=== PATIENT | male | born 1980 | race African-American/Black ===

== ENCOUNTER 2022-04-19 18:58 | Emergency (ER) | payer OTHER, SELFPAY ==
[2022-04-19 19:27] VITALS: BP 125/75; PULSE 94; RESP 18; TEMP 37.2; O2SAT 97; BMI 20.3
== END 2022-04-19 21:09 | disposition left against medical advice (07) ==
LOC: HO.ED 21:08
PROVIDERS: Emergency Provider Emergency Medicine
DX: M79.604 Pain in right leg (principal); R20.0 Anesthesia of skin
CPT/HCPCS: 99281

== ENCOUNTER 2022-07-31 23:31 | Emergency (ER) | payer OTHER, SELFPAY ==
--- NOTE | ~2022-07-31 | XR_ITS ---
EXAMINATION: XR LUMBOSACRAL SPINE CLINICAL INFORMATION: Right-sided sciatic pain COMPARISON: None TECHNIQUE: Three views of the lumbosacral spine. FINDINGS: 5 nonrib-bearing lumbar-type vertebral bodies with diminutive T12 ribs. No acute visible fracture or dislocation. Very mild multilevel degenerative changes with osteophyte formation and facet arthropathy. Vertebral body height and disc spaces are otherwise maintained. Posterior elements are intact. Paraspinal soft tissues are unremarkable. Sclerotic focus overlying the right iliopectineal line nonspecific though may represent a bone island. Visualized bowel gas is unremarkable. XR/XR lumbar spine 2-3V IMPRESSION: 1. No acute visible fracture or dislocation. 2. Very mild multilevel degenerative changes.
[2022-08-01 00:49] VITALS: BP 90/54; PULSE 89; RESP 16; TEMP 37.2; O2SAT 95; BMI 22.1
[2022-08-01 06:35] VITALS: BP 109/71; PULSE 73; RESP 13; TEMP 36.7; O2SAT 98
--- NOTE | 2022-08-01 07:09 | ED_ITS ---
HPI - General Adult General Chief complaint: Extremity Problem Stated complaint: BACK PAIN INJURY Time Seen by Provider: 08/01/22 07:09 Source: patient Mode of arrival: ambulatory Limitations: no limitations History of Present Illness HPI narrative: Patient states that he injured himself a few weeks ago, is seeing an orthopedist and physical therapy. Was told to come in because he is not getting better. Denies numbness, denies bowel or bladder issues. Patient states that his pain goes down his right leg Onset (ago): week(s) Location: back Radiation: back Severity: moderate Pain Consistency: constant Associated symptoms: denies other symptoms Related Data Previous Rx's Medication Instructions Recorded cyclobenzaprine 10 mg tablet 10 mg PO TID #10 tabs 08/01/22 naproxen 500 mg tablet (Naprosyn) 500 mg PO BID #20 tabs 08/01/22 Allergies Allergy/AdvReac Type Severity Reaction Status Date / Time Iodinated Contrast Media Allergy Unknown HIVES Unverified 07/22/20 19:36 [IV CONTRAST] Review of Systems Constitutional: Constitutional: Reports no additional constitutional complaints Eyes: Eyes: Reports no additional eye complaints ENT: Denies dizziness Cardiovascular: Cardiovascular: Reports no additional cardiovascular complaints Respiratory: Respiratory: Reports as per HPI Gastrointestinal: Gastrointestinal: Reports no additional gastrointestinal complaints Musculoskeletal: Musculoskeletal: Reports no additional musculoskeletal complaints Integumentary/Breasts: Skin/Breast: Denies rash Neurologic: Reports system reviewed and no additional complaints, except as documented, Denies dizziness and Denies Sensory deficit (Neuro) Psychiatric: Psychiatric: Denies anxiety [facility] Social History Social History Alcohol intake: current Alcohol intake frequency: holidays/special occasions only Patient Tobacco Use Status: Current everyday Tobacco user Smoked in Last 30 Days: Yes Substance Use Type: Marijuana Substance Use Frequency: Occasionally Last Used Substance: Days (ago) Any prior treatment program specific to substance use: No Advance Directives: No Physical Exam ED Vital Signs: Vital Signs - 24 hr 08/01/22 00:49 08/01/22 06:35 Temperature 98.9 F 98.0 F Pulse Rate 89 73 Respiratory Rate 16 13 Blood Pressure 90/54 L 109/71 Pulse Oximetry 95 98 Oxygen Delivery Method Room Air Room Air BMI result Body Mass Index 22.1 Const Other: thin male in back pain Nutritional Appearance: average body habitus Orientation/consciousness: oriented to person and patient oriented x3 Limitations: no limitations HENMT Head: Yes normal to inspection Ears: external ears normal General nose exam: Normal external nose present Mouth: Normal oral and palatal mucosa present and oropharynx normal Throat: Yes posterior oropharynx normal Eyes General: appearance normal, both eyes and all related structures Neck Neck: Yes normal visual inspection Chest Chest palpation & inspection: normal inspection of the chest Resp Auscultation: clear to auscultation bilaterally Cardio Jugular venous distension: no JVD Rate: regular rate Rhythm: regular rhythm Heart sounds: S1 normal heart sound present and S2 normal heart sound present GI Inspection: Yes normal to inspection Palpation (GI): Soft to palpation, nontender and No hepatosplenomegaly present Auscultation: normal bowel sounds Back/Spine/Pelvis Other: right SI joint pain and right sciatica pain. Skin General skin exam: no rashes or lesions noted Neuro General: oriented to person and patient oriented x3 Cranial nerves: Yes CN's II-XII intact bilaterally Motor exam (neuro): 5/5 motor strength present throughout Sensory Exam: No Sensory deficit (Neuro) Extrem General: Yes normal to inspection Psych Appearance: grossly normal Course Reevaluation(s) Reevaluation #1: patient with mild djd on xray will dc on NSAIDs and flexeril, neuro intact no need for emergency MrI Time: 10:12 Medical Decision Making Imaging Data lumbar xray: Radiologist's impression: FINDINGS: 5 nonrib-bearing lumbar-type vertebral bodies with diminutive T12 ribs. No acute visible fracture or dislocation. Very mild multilevel degenerative changes with osteophyte formation and facet arthropathy. Vertebral body height and disc spaces are otherwise maintained. Posterior elements are intact. Paraspinal soft tissues are unremarkable. Sclerotic focus overlying the right iliopectineal line nonspecific though may represent a bone island. Visualized bowel gas is unremarkable. XR/XR lumbar spine 2-3V IMPRESSION: 1.? No acute visible fracture or dislocation. 2.? Very mild multilevel degenerative changes. Discharge Plan Discharge Clinical Impression: Lumbar back pain Patient Disposition: Home, Self-Care Instructions: Acute Low Back Pain (ED) Prescriptions: New cyclobenzaprine 10 mg tablet 10 mg PO TID Qty: 10 0RF naproxen [Naprosyn] 500 mg tablet 500 mg PO BID Qty: 20 0RF Referrals: Physician,None [Primary Care Provider] - 5 days (follow up with your orthopedist)
[2022-08-01] MEDS: Cyclobenzaprine HCl 10 MG TABLET PO (07:30)
[2022-08-01] MEDS: Ketorolac Tromethamine 60 MG/2 ML VIAL IM (07:31)
== END 2022-08-01 10:28 | disposition home or self-care (01) ==
PROVIDERS: Emergency Provider Emergency Medicine
DX: M54.50 Low back pain, unspecified (principal); Z79.899 Other long term (current) drug therapy
CPT/HCPCS: 72100; 96372; 99284; J1885

== ENCOUNTER 2024-03-19 15:07 | Emergency (ER) | payer OTHER, SELFPAY ==
--- NOTE | ~2024-03-19 | XR_ITS ---
EXAMINATION: XR LUMBOSACRAL SPINE CLINICAL INFORMATION: Right-sided pain after fall COMPARISON: Lumbar spine 08/01/2022 MR lumbar spine 08/31/2022 TECHNIQUE: Three views of the lumbosacral spine. FINDINGS: There are mild spondylitic endplate changes seen at the superior endplates of L1 and L3 and L4. Vertebral body heights and disc spaces are well maintained. No acute fractures or subluxations are seen. There is a minimal scoliosis convex to the right unchanged from prior. XR/XR lumbar spine 2-3V IMPRESSION: Mild degenerative changes. No acute finding.
--- NOTE | 2024-03-19 16:38 | ED.GENADULT ---
HPI - General Adult General Chief complaint: Fall Stated complaint: herminia rodriguez, fell two days ago, pain Time Seen by Provider: 03/19/24 22:57 Source: patient, RN notes reviewed and old records reviewed Mode of arrival: ambulatory Limitations: no limitations History of Present Illness HPI narrative: 43-year-old male past medical history significant for chronic back pain presents for evaluation of right lower back pain Patient reports trying to get in the shower 2 days ago when he slipped and fell backwards Healing on his back. He did not hit his head or lose consciousness. He has not on any blood thinners He reports 8/10 back pain in the right lower back that radiates down his leg He occasionally ambulates with a walker at baseline due to pain He reports a previous back surgery but is unsure exactly what was performed Denies any numbness, tingling, bladder or bowel incontinence Related Data Previous Rx's ?Medication ?Instructions ?Recorded cyclobenzaprine 10 mg tablet 10 mg PO TID #10 tabs 08/01/22 naproxen 500 mg tablet (Naprosyn) 500 mg PO BID #20 tabs 08/01/22 cyclobenzaprine 10 mg tablet 10 mg PO TID PRN muscle spasm #15 03/19/24 tabs dexamethasone 4 mg tablet 4 mg PO BID #6 tabs 03/19/24 ibuprofen 600 mg tablet 600 mg PO Q6H PRN pain #20 tabs 03/19/24 Allergies Allergy/AdvReac Type Severity Reaction Status Date / Time Iodinated Contrast Media Allergy Unknown HIVES Verified 03/19/24 16:41 [IV CONTRAST] Review of Systems Constitutional: Constitutional: Denies body ache(s), Denies chills, Denies fever(s) and Denies headache(s) Eyes: Eyes: Denies blurry vision ENT: Denies headache(s) and Denies sore throat Cardiovascular: Cardiovascular: Denies chest pain and Denies dyspnea Respiratory: Respiratory: Denies cough and Denies dyspnea Gastrointestinal: Gastrointestinal: Denies abdominal pain, Denies nausea and Denies vomiting Musculoskeletal: Musculoskeletal: Reports back pain Neurologic: Denies headache(s) [facility] Social History Social History Alcohol intake: current Alcohol intake frequency: holidays/special occasions only Patient Tobacco Use Status: Current everyday Tobacco user Substance Use Type: Marijuana Advance Directives: No Advance Directives Information Provided: No Physical Exam ED Vital Signs: Vital Signs - 24 hr 03/19/24 16:39 03/19/24 21:29 03/19/24 23:47 Temperature 98.7 F 98.3 F 98.3 F Pulse Rate 74 90 90 Respiratory Rate 16 16 16 Blood Pressure 98/63 104/78 104/78 Pulse Oximetry 98 97 97 Oxygen Delivery Method Room Air Room Air Room Air BMI result Body Mass Index 20.4 Const General: healthy appearing, comfortable, no acute distress, alert and awake Nutritional Appearance: well nourished Orientation/consciousness: patient oriented x3 HENMT Head: Yes normocephalic and Yes atraumatic Eyes Eyelids: Yes eyelids normal Conjunctivae: conjunctivae normal Sclerae: sclerae normal Corneas: corneas normal Pupils: Equal, round and reactive pupils present EOM: EOMs intact bilaterally Neck Neck: Yes full ROM Resp Effort & Inspection: normal respiratory effort, able to speak in complete sentences and not labored GI Inspection: No distended Palpation (GI): Soft to palpation, not firm, nontender, no guarding and not rigid Back/Spine/Pelvis Other: Tenderness to the right lumbar paraspinous region without vertebral tenderness. No step-off deformities. Negative straight leg raise bilaterally. Skin General skin exam: elasticity normal Neuro General: patient oriented x3 Cranial nerves: Yes Equal, round and reactive pupils present and Yes Bilaterally intact EOM present Cognition (Neuro): normal cognition Gait exam (Neuro): Normal gait present Motor exam (neuro): 5/5 motor strength present throughout Extrem Other: Moving all extremities well without any obvious deformities Course Course Course Narrative: This is a rapid medical exam performed by Loan Green NP: Additional HPI, ROS, PE not included below will be deferred to primary provider. Patient is a 43-year-old male presenting to the ED with complaint of low back pain after fall 2 days ago. States he lost his balance falling onto the floor. Denies head strike or loss of consciousness. Right lower back pain radiating down right leg, tingling but denies numbness. Marcellus a pop getting out of bed earlier. Denies difficulty urinating. Plan: xray Medications Administered Discontinued Medications Generic Name Dose Route Start Last Admin Trade Name Freq PRN Reason Stop Dose Admin Cyclobenzaprine HCl 10 mg 03/19/24 23:19 03/19/24 23:33 Cyclobenzaprine Hcl 10 Mg Tablet PO 03/19/24 23:20 10 mg ONCE ONE Administration Dexamethasone 4 mg 03/19/24 23:19 03/19/24 23:33 Dexamethasone 4 Mg Tablet PO 03/19/24 23:20 4 mg ONCE ONE Administration Medical Decision Making Medical Decision Making MDM Narrative: 43-year-old male presents for evaluation acute on chronic back pain after falling. His x-ray shows mild degenerative changes but no fractures. His physical exam is reassuring, he has no concerning history for cauda equina syndrome, strength is good to the bilateral lower extremities. Plan for symptomatic treatment for sciatica Differential Diagnosis Differential Diagnoses: The differential diagnosis associated with the presentation includes Sciatica Muscle strain Contusion Radiculopathy Back pain Independent Interpretation I performed an independent interpretation of an: Plain X-Ray Interpretation: No obvious lumbar compression fracture Radiology Impression Discussion of test interpretation with radiology: I have reviewed the radiologist's reading. Radiologist Impression: XR/XR lumbar spine 2-3V IMPRESSION: Mild degenerative changes. No acute finding. Discharge Plan Discharge Clinical Impression: Sciatica Patient Disposition: Home, Self-Care Instructions: Sciatica (ED) Additional Instructions: Your x-ray did not show any new fractures. Take dexamethasone twice daily for 3 days. Use ibuprofen for pain. Use cyclobenzaprine as needed for muscle spasms This may make you sleepy, did not drink alcohol or drive after taking it Follow-up with your primary doctor Prescriptions: New dexamethasone 4 mg tablet 4 mg PO BID Qty: 6 0RF cyclobenzaprine 10 mg tablet 10 mg PO TID PRN (Reason: muscle spasm) Qty: 15 0RF ibuprofen 600 mg tablet 600 mg PO Q6H PRN (Reason: pain) Qty: 20 0RF No Action cyclobenzaprine 10 mg tablet 10 mg PO TID Qty: 10 0RF naproxen [Naprosyn] 500 mg tablet 500 mg PO BID Qty: 20 0RF Interventions: ED Discharge Assessment Last Done: 03/19/24 23:47 Discharge Date/Time: 03/19/24 23:48 Print Language: Bangladeshi
[2024-03-19 16:39] VITALS: BP 98/63; PULSE 74; RESP 16; TEMP 37.1; O2SAT 98; BMI 20.4
[2024-03-19 21:29] VITALS: BP 104/78; PULSE 90; RESP 16; TEMP 36.8; O2SAT 97
[2024-03-19] MEDS: dexAMETHasone 4 MG TABLET PO (23:33)
[2024-03-19] MEDS: Cyclobenzaprine HCl 10 MG TABLET PO (23:33)
[2024-03-19 23:47] VITALS: BP 104/78; PULSE 90; RESP 16; TEMP 36.8; O2SAT 97
== END 2024-03-19 23:48 | disposition home or self-care (01) ==
PROVIDERS: Emergency Provider Internal Medicine
DX: M54.30 Sciatica, unspecified side (principal); M54.50 Low back pain, unspecified
CPT/HCPCS: 72100; 99283; J8540

== ENCOUNTER 2024-04-20 11:39 | Emergency (ER) | payer OTHER, SELFPAY ==
--- NOTE | ~2024-04-20 | XR_ITS ---
Radiograph lumbar spine and sacrum/coccyx CLINICAL HISTORY: Pain, injury. COMPARISON: Radiograph lumbar spine 03/19/2024. TECHNIQUE: 2 views of the lumbar spine and 2 views of the sacrum/coccyx. FINDINGS: Lumbar spine: Stable mild right apical curvature of the lumbar spine. No evidence of acute compression deformity or subluxation. Stable minimal degenerative changes with trace intervertebral disc height loss and minimal facet arthropathy. No significant paraspinal soft tissue abnormality. Sacrum/coccyx: No acute fractures or malalignment. Symmetric SI joints. Pelvic phleboliths are seen. No significant soft tissue abnormality. XR/XR sacrum coccyx min 2V IMPRESSION: 1. No acute fractures or malalignment. 2. Stable minimal lumbar spondylosis. 3. Symmetric SI joints.
--- NOTE | ~2024-04-20 | XR_ITS ---
Radiograph lumbar spine and sacrum/coccyx CLINICAL HISTORY: Pain, injury. COMPARISON: Radiograph lumbar spine 03/19/2024. TECHNIQUE: 2 views of the lumbar spine and 2 views of the sacrum/coccyx. FINDINGS: Lumbar spine: Stable mild right apical curvature of the lumbar spine. No evidence of acute compression deformity or subluxation. Stable minimal degenerative changes with trace intervertebral disc height loss and minimal facet arthropathy. No significant paraspinal soft tissue abnormality. Sacrum/coccyx: No acute fractures or malalignment. Symmetric SI joints. Pelvic phleboliths are seen. No significant soft tissue abnormality. XR/XR lumbar spine 2-3V IMPRESSION: 1. No acute fractures or malalignment. 2. Stable minimal lumbar spondylosis. 3. Symmetric SI joints.
--- NOTE | 2024-04-20 11:42 | ED_ITS ---
HPI - General Adult General Chief complaint: Back Pain/Injury Stated complaint: LOW BACK PAIN INTO R LEG,SLIP/FALL 2 WEEKS AGO Time Seen by Provider: 04/20/24 11:42 Source: patient and EMS Mode of arrival: EMS Limitations: no limitations History of Present Illness ED Provider: Charity Graham PA-C HPI narrative: Patient is a 43 year old assigned male at with a history of low back yoli deborah in October 2023, presenting to the emergency department today with low back pain. Patient states that 2.5 weeks ago he had a slip and fall in the shower that has been causing right lower back pain that radiates down his right leg. Patient denies any head strike, loss of consciousness, dizziness, lightheadedness, abdominal pain, nausea, vomiting, fever, chills, blurry vision, double vision, loss of vision, chest pain, difficulty breathing, shortness of breath, night sweats, pain with urination, increased urinary frequency, increased urinary urgency, blood in [his/her/their] urine or stool, syncope or a near syncopal episode, recent trauma or falls, bowel incontinence, bladder incontinence, or any other complaints at this time. Patient states that he has used cocaine and alcohol today prior to arrival. Onset (ago): week(s) (2.5) Location: back Radiation: extremity and distal Severity: mild Severity scale (1-10): 3 Quality: aching Pain Consistency: constant Relieving factors: none Exacerbating factors: movement Associated symptoms: denies other symptoms Treatments prior to arrival: none Related Data Previous Rx's ?Medication ?Instructions ?Recorded cyclobenzaprine 10 mg tablet 10 mg PO TID #10 tabs 08/01/22 naproxen 500 mg tablet (Naprosyn) 500 mg PO BID #20 tabs 08/01/22 cyclobenzaprine 10 mg tablet 10 mg PO TID PRN muscle spasm #15 03/19/24 tabs dexamethasone 4 mg tablet 4 mg PO BID #6 tabs 03/19/24 ibuprofen 600 mg tablet 600 mg PO Q6H PRN pain #20 tabs 03/19/24 cyclobenzaprine 10 mg tablet 10 mg PO TID PRN muscle spasm 7 04/20/24 days #21 tabs Allergies Allergy/AdvReac Type Severity Reaction Status Date / Time Iodinated Contrast Media Allergy Unknown HIVES Verified 04/20/24 12:11 [IV CONTRAST] Review of Systems Constitutional: Constitutional: Reports no additional constitutional complaints, Denies chills, Denies fever(s) and Denies night sweats Eyes: Eyes: Reports no additional eye complaints, Denies blurry vision, Denies change in vision, Denies diplopia, Denies eye discharge, Denies loss of vision and Denies eye pain ENT: Denies dizziness Cardiovascular: Cardiovascular: Reports no additional cardiovascular complaints, Denies chest pain, Denies lightheadedness, Denies Loss of Consciousness and Denies dyspnea Respiratory: Respiratory: Reports no additional respiratory complaints and Denies dyspnea Gastrointestinal: Gastrointestinal: Reports no additional gastrointestinal complaints, Denies abdominal pain, Denies melena, Denies hematochezia, Denies change in bowel habits and Denies change in stool character Genitourinary: Genitourinary: Reports no additional male genitourinary complaints, Denies hematuria, Denies oliguria, Denies difficulty urinating, Denies dysuria, Denies urinary frequency, Denies urinary hesitancy, Denies urinary incontinence and Denies urinary urgency Musculoskeletal: Musculoskeletal: Reports no additional musculoskeletal complaints, Reports back pain, Denies numbness and Denies tingling Neurologic: Denies dizziness, Denies loss of vision, Denies numbness and Denies tingling Psychiatric: Psychiatric: Reports no additional psychiatric complaints Endocrine: Endocrine: Reports no additional endocrine complaints Hematologic/Lymphatic: Hematologic/Lymphatic: Reports no additional hematologic/lymphatic complaints Allergic/Immunologic: Allergic/Immunologic: Reports no additional allergic/immunologic complaints [facility] Past Medical History Attestation statement: The following information was validated with the patient. Source: old records reviewed and nursing notes reviewed Social History Social History Alcohol intake: current Alcohol intake frequency: holidays/special occasions on ly Patient Tobacco Use Status: Current everyday Tobacco user Substance Use Type: Marijuana Advance Directives: No Advance Directives Information Provided: Yes Physical Exam ED Vital Signs: Vital Signs - 24 hr 04/20/24 11:46 04/20/24 13:29 Temperature 98.7 F 98.7 F Pulse Rate 104 H 104 H Respiratory Rate 18 18 Blood Pressure 118/80 118/80 Pulse Oximetry 97 97 Oxygen Delivery Method Room Air Room Air BMI result Body Mass Index 19.3 Const General: cooperative, no acute distress, alert and awake Nutritional Appearance: well nourished Orientation/consciousness: patient oriented x3 Limitations: no limitations HENMT Head: Yes normal to inspection and Yes atraumatic Ears: hearing grossly normal bilaterally and external ears normal General nose exam: Normal external nose present, no nasal discharge noted and no epistaxis Face and sinus: Yes normal facial exam, No abrasion and No laceration Mouth: Normal oral and palatal mucosa present, no drooling and no muffled voice Eyes General: appearance normal, both eyes and all related structures Periorbital: periorbital findings normal Eyelids: Yes eyelids normal Conjunctivae: conjunctivae normal Pupils: Equal, round and reactive pupils present EOM: EOMs intact bilaterally Neck Neck: Yes normal visual inspection, Yes full ROM and Yes no lymphadenopathy Chest Chest palpation & inspection: normal inspection of the chest Resp Effort & Inspection: normal respiratory effort and able to speak in complete sentences GI Inspection: Yes normal to inspection General: Yes no CVA tenderness Back/Spine/Pelvis Back: no CVA tenderness Cervical Spine: normal cervical lordosis and cervical ROM normal Thoracic/Lumbar Spine: thoracic and lumbar spine normal to inspection Neuro General: patient oriented x3 and moves all extremities Cranial nerves: Yes Equal, round and reactive pupils present Cognition (Neuro): normal cognition Motor exam (neuro): 5/5 motor strength present throughout Sensory Exam: Normal double simultaneous stimulation for sensation Coordination: [id number] test normal Extrem General: Yes normal to inspection, Yes full ROM and Yes capillary refill normal Psych Appearance: grossly normal Mental Status: mental status grossly normal Affect: normal affect Attitude: cooperative Thought process: Normal thought process present Thought content: Normal thought content present Insight: Good insight present (Psych) Medications Administered Discontinued Medications Generic Name Dose Route Start Last Admin Trade Name Freq PRN Reason Stop Dose Admin Cyclobenzaprine HCl 5 mg 04/20/24 11:42 04/20/24 11:55 Cyclobenzaprine Hcl 5 Mg Tablet PO 04/20/24 11:43 5 mg ONCE ONE Administration Ketorolac Tromethamine 15 mg 04/20/24 11:42 04/20/24 11:55 Ketorolac Tromethamine 15 Mg/Ml Vial IM 04/20/24 11:43 15 mg ONCE ONE Administration Medical Decision Making Medical Decision Making MDM Narrative: Patient is a 43 year old assigned male at with a history of low back surgery in October 2023 presenting to the emergency department today with low back pain. Patient's physical exam was unremarkable. Patient's sacrum and coccyx x-ray showed no acute process. I explained my physical exam findings as well as all test results to the patient. I answered all questions asked by the patient. Patient received IM toradol and PO Flxeril which on re-evaluation he stated helped his symptoms significantly. I stressed the importance of the patient johnie ing his medication as prescribed. I stressed the importance of the patient following up with his primary care provider and his teaching specialists. I stressed the importance of the patient returning to the emergency department immediately if his symptoms were to worsen or if he were to develop any dizziness, shortness of breath, difficulty breathing, chest pain, blurry vision, loss of vision, nausea, vomiting, abdominal pain, fever, chills, back pain, or any other complaints. Patient verbalized agreement and understanding with this treatment plan and discharge. Differential Diagnosis Differential Diagnoses: The differential diagnosis associated with the presentation includes Low back pain Muscle spasm Admission/Observation Consideration of admission/observation: Escalation of care including admission/observation considered Patient would have been admitted to the hospital had his work up had any findings where hospital admission was appropriate and his clinical presentation warranted hospital admission. Independent Interpretation I performed an independent interpretation of an: Plain X-Ray Interpretation: My interpretation is in agreement with the radiologist's impression of this imaging study. Radiograph lumbar spine and sacrum/coccyx CLINICAL HISTORY: Pain, injury. COMPARISON: Radiograph lumbar spine 03/19/2024. TECHNIQUE: 2 views of the lumbar spine and 2 views of the sacrum/coccyx. FINDINGS: Lumbar spine: Stable mild right apical curvature of the lumbar spine. No evidence of acute compression deformity or subluxation. Stable minimal degenerative changes with trace intervertebral disc height loss and minimal facet arthropathy. No significant paraspinal soft tissue abnormality. Sacrum/coccyx: No acute fractures or malalignment. Symmetric SI joints. Pelvic phleboliths are seen. No significant soft tissue abnormality. XR/XR sacrum coccyx min 2V IMPRESSION: 1. No acute fractures or malalignment. 2. Stable minimal lumbar spondylosis. 3. Symmetric SI joints. Dictated By: Lisa Kinsey Signed By: Electronically signed by Lisa Kinsey 04/20/24 1242 Radiology Impression Discussion of test interpretation with radiology: I have reviewed the radiologist's reading. Independent Historian Clinical information obtained from an independent historian. History obtained from or confirmed by: EMS (EMS provided additional history and confirmed the history provided by the patient.) Prescription Management I considered prescription management with: Pain Medication (patient prescribed pain medication) Critical Care Time Critical Care Time Critical Care Time: Yes Total Critical Care Time: 31 Attestation: I spent 31 minutes of Critical Care Time with this patient. This does not include time spent on separately reported billable procedures. Discharge Plan Discharge Clinical Impression: Muscle spasm Patient Disposition: Home, Self-Care Instructions: Muscle Spasm (ED) Additional Instructions: Follow up with your primary care provider and a spine surgeron. Return to the emergency department immediately if your symptoms worsen or if you develop any dizziness, shortness of breath, difficulty breathing, chest pain, blurry vision, loss of vision, nausea, vomiting, abdominal pain, fever, chills, back pain, or any other complaints. Prescriptions: New cyclobenzaprine 10 mg tablet 10 mg PO TID PRN (Reason: muscle spasm) 7 Days Qty: 21 0RF No Action cyclobenzaprine 10 mg tablet 10 mg PO TID Qty: 10 0RF naproxen [Naprosyn] 500 mg tablet 500 mg PO BID Qty: 20 0RF dexamethasone 4 mg tablet 4 mg PO BID Qty: 6 0RF cyclobenzaprine 10 mg tablet 10 mg PO TID PRN (Reason: muscle spasm) Qty: 15 0RF ibuprofen 600 mg tablet 600 mg PO Q6H PRN (Reason: pain) Qty: 20 0RF Referrals: [facility] Family Medicine [Provider Group] (Call to establish and follow up with a primary care provider. If you already have a primary care provider, please fo llow up with them.) [facility] [Provider Group] [facility] [Provider Group] Stand Alone Forms: Work/School Release Interventions: ED Discharge Assessment Last Done: 04/20/24 13:29 Discharge Date/Time: 04/20/24 13:30 Print Language: Swazi
[2024-04-20 11:46] VITALS: BP 100/60; BP 118/80; PULSE 104; PULSE 119; RESP 18; TEMP 37.1; O2SAT 96; O2SAT 97; BMI 19.3
[2024-04-20] MEDS: Cyclobenzaprine HCl 5 MG TABLET PO (11:55)
[2024-04-20] MEDS: Ketorolac Tromethamine 15 MG/ML VIAL IM (11:55)
[2024-04-20 13:29] VITALS: BP 118/80; PULSE 104; RESP 18; TEMP 37.1; O2SAT 97
== END 2024-04-20 13:30 | disposition home or self-care (01) ==
PROVIDERS: Emergency Provider Emergency Medicine Emergency Medical Services
DX: M62.830 Muscle spasm of back (principal)
CPT/HCPCS: 72100; 72220; 96372; 99283; 99284; J1885

== ENCOUNTER 2024-04-28 01:39 | Emergency (ER) | payer OTHER, SELFPAY ==
--- NOTE | ~2024-04-28 | US_ITS ---
EXAMINATION: US VENOUS ULTRASOUND WITH DOPPLER LOWER EXTREMITY, BILATERAL CLINICAL INFORMATION: Bilateral lower extremity edema COMPARISON: Right lower extremity DVT study 10/22/2018 TECHNIQUE: Ultrasound of the deep veins is performed from the hip to the calf with compression sonography and color and pulse Doppler assessment. Spectral analysis with color-flow imaging is performed. FINDINGS: RIGHT: There is normal venous compression and respiratory variation and augmented flow. The visualized common femoral vein, superficial femoral vein, profunda femoral vein, popliteal vein, and the trifurcation region shows no evidence of deep venous thrombosis. The posterior tibial veins appear normal. Peroneal veins were not visualized. There is no significant popliteal fossa cyst. LEFT: There is normal venous compression and respiratory variation and augmented flow. The visualized common femoral vein, superficial femoral vein, profunda femoral vein, popliteal vein, and the trifurcation region shows no evidence of deep venous thrombosis. Posterior tibial veins and peroneal veins appear normal. There is no significant popliteal fossa cyst. If the patient's symptoms persist, followup ultrasound in 5 days 7 days might be of value to exclude proximal propagation from a non-visualized calf vein. US/US venous duplex LE BI IMPRESSION: No DVT demonstrated in either lower extremity. Peroneal veins on the right were not seen.
[2024-04-28 01:46] VITALS: BP 115/73; PULSE 126; RESP 20; TEMP 36.9; O2SAT 99; BMI 19.7
--- NOTE | 2024-04-28 01:59 | MHC.EDTECH ---
Patient brought to triage area,labs drawn and sent to lab
[2024-04-28 02:04] LABS: Mean Corpuscular HGB Conc 34.2 g/dl (31.0-36.0); Mean Corpuscular Volume 93.6 fL (80.0-98.0); Platelet Count 299 X10*3/uL (160-400); Red Blood Count 4.06 X10*6/uL (4.60-5.80); Red Cell Distribution Width 16.1 % (11.0-16.0); WBC ABN SCTR FOR CBC 1
[2024-04-28 02:06] LABS: White Blood Count 10.8 X10*3/uL (4.8-10.8)
[2024-04-28 02:21] LABS: Alanine Aminotransferase 39 U/L (0-40); Albumin Level 4.6 g/dL (3.5-5.0); Alkaline Phosphatase 71 U/L (39-117); Anion Gap 18 (12-20); Aspartate Amino Transferase 40 U/L (5-37); Bilirubin Total 0.8 mg/dL (0.0-1.0); Blood Urea Nitrogen 15 mg/dL (9-16); Calcium 9.5 mg/dL (8.4-10.2); Carbon Dioxide 23 mmol/L (22-29); Chloride 102 mmol/L (96-108); Creatinine Clr Calc Pharmacy 104.9; Estimated Glomerular Filt Rate > 60; Glucose Random 139 mg/dL (60-115); Potassium 4.6 mmol/L (3.3-5.1); Sodium 138 mmol/L (135-145); Total Protein 7.4 g/dL (6.5-8.0)
[2024-04-28 02:38] LABS: Band Neutrophils Percent 1 % (3-5); Lymphocytes Absolute Manual 1.1 X10*3/uL (1.2-4.9); Lymphocytes Percent Manual 10 % (20-40); Monocytes Absolute Manual 0.8 X10*3/uL (0.1-1.2); Monocytes Percent Manual 7 % (2-11); Neutrophils Percent Manual 82 % (45-73)
[2024-04-28 02:39] LABS: Platelet Estimate NORMAL (NORMAL); Platelet Morphology Comment NORMAL; RBC Morphology NORMAL
[2024-04-28 02:48] LABS: B Type Natriuretic Peptide < 10 pg/mL (<100)
[2024-04-28 04:13] VITALS: BP 122/65; PULSE 100; RESP 14; TEMP 36.7; O2SAT 98
--- NOTE | 2024-04-28 05:47 | ED_ITS ---
HPI - General Adult General Chief complaint: Extremity Problem Stated complaint: pain and swelling in both feet Time Seen by Provider: 04/28/24 05:47 History of Present Illness ED Provider: Venessa JEFFERS narrative: The patient is a 43-year-old male who had back surgery in September of 2023 following a work related injury 2 years ago. He has had a lot of ongoing back pain despite the surgery and a few weeks ago he apparently fell in a bathtub and has had worsening pain ever since then. He has been seen here before for the injury and had negative x-rays. Apparently his pain is such that it does not allow him to lie down and he spends most of his time on his feet, sometimes not going to sleep because it is too painful to be in any other position than standing. Over the last 2-3 days he has developed bilateral lower extremity edema with some associated redness of the lower legs. He has had no fever, sweats, chills. He has had no bowel or bladder control problems. He has been able to walk but is still not able to lie down. He has had no shortness of breath or chest pain. Related Data Previous Rx's ?Medication ?Instructions ?Recorded cyclobenzaprine 10 mg tablet 10 mg PO TID #10 tabs 08/01/22 naproxen 500 mg tablet (Naprosyn) 500 mg PO BID #20 tabs 08/01/22 cyclobenzaprine 10 mg tablet 10 mg PO TID PRN muscle spasm #15 03/19/24 tabs dexamethasone 4 mg tablet 4 mg PO BID #6 tabs 03/19/24 ibuprofen 600 mg tablet 600 mg PO Q6H PRN pain #20 tabs 03/19/24 cyclobenzaprine 10 mg tablet 10 mg PO TID PRN muscle spasm 7 04/20/24 days #21 tabs cyclobenzaprine 10 mg tablet 10 mg PO TID PRN muscle spasm #20 04/28/24 tabs morphine 15 mg immediate release 15 mg PO Q6H PRN pain #18 tabs 04/28/24 tablet Allergies Allergy/AdvReac Type Severity Reaction Status Date / Time Iodinated Contrast Media Allergy Unknown HIVES Verified 04/28/24 01:51 [IV CONTRAST] Review of Systems 2 Review of Systems: Yes all other systems are reviewed and are negative [facility] Social History Social History (Reviewed 04/20/24 @ 12:25 by SENAIT Crawford Alcohol intake: current Alcohol intake frequency: 3 or more drinks per day Alcohol type: beer Patient Tobacco Use Status: Current everyday Tobacco user Smoked in Last 30 Days: Yes Use of substances other than those prescribed or required for medical reasons: Yes Substance Use Type: Marijuana Substance Use Frequency: Daily Advance Directives: No Advance Directives Information Provided: No Physical Exam ED Vital Signs: Vital Signs - 24 hr 04/28/24 01:46 04/28/24 04:13 04/28/24 06:30 Temperature 98.5 F 98.0 F 97.5 F Pulse Rate 126 H 100 91 Respiratory Rate 20 14 12 Blood Pressure 115/73 122/65 96/61 Pulse Oximetry 99 98 99 Oxygen Delivery Method Room Air Room Air Room Air 04/28/24 07:23 04/28/24 08:10 04/28/24 09:03 Temperature 98.9 F 98.9 F Pulse Rate 90 82 82 Respiratory Rate 14 14 14 Blood Pressure 109/70 110/78 110/78 Pulse Oximetry 100 100 100 Oxygen Delivery Method Room Air Room Air Room Air BMI result Body Mass Index 19.7 Const Other: The patient is a thin, chronically ill-appearing man who was standing and leaning on his cane. He did not appear acutely toxic but he seemed anxious. HENMT Other: Face is symmetrical. Mucous membranes moist. Eyes Other: Pupils are round equal, conjunctivae clear Neck Other: Moving his neck easily, no neck swelling Resp Effort & Inspection: normal respiratory effort Auscultation: clear to auscultation bilaterally Cardio Rate: regular rate Rhythm: regular rhythm Heart sounds: S1 normal heart sound present and S2 normal heart sound present Skin Other: The patient has a edema of the lower legs below the knee and of the feet. There is some erythema to both lower legs. Neuro Other: The patient is awake and alert. Speech is clear. Face is symmetrical. He seems to have intact strength in his extremities. Extrem Other: 2+ pitting edema of the lower legs with associated erythema. No particular tenderness. No asymmetry. Medications Administered Discontinued Medications Generic Name Dose Route Start Last Admin Trade Name Freq PRN Reason Stop Dose Admin Cyclobenzaprine HCl 10 mg 04/28/24 06:09 04/28/24 06:30 Cyclobenzaprine Hcl 10 Mg Tablet PO 04/28/24 06:10 10 mg ONCE ONE Administration Morphine Sulfate 30 mg 04/28/24 06:09 04/28/24 06:31 Morphine Sulfate Immed Release 15 Mg Tablet PO 04/28/24 06:10 30 mg ONCE ONE Administration Medical Decision Making Medical Decision Making [facility] Narrative: The patient is a 43-year-old male who has had problems with back pain for some time. He had surgery for his back 8 months ago. In mid March he fell in his shower and it exacerbated his back pain. He now presents with bilateral lower extremity edema which seems most likely related to the fact that he spends almost all of his time on his feet and rarely gets off his feet. I think he has dependent edema with dependent rubor. I do not think he has cellulitis. His labs are unremarkable. An ultrasound of his legs shows no clots. The patient is pain syndrome is complicated by the fact that he has not have a PCP. He is here with his sister with whom he is living. His sister is trying to get him connected with a primary care doctor but she is having difficulty finding a primary care doctor accepting new patients. With regard to the patient's presenting complaint of the bilateral lower extremity edema I think this is a consequence of him spending so much time on his feet. At this point the best I feel I can do is to provide some pain medications for a few days to at least give him some relief of pain and allow some time for him to lie down and get the swelling to go down. I have written a prescription for morphine and for cyclobenzaprine. He was discharged with his sister. Lab Data 04/28/24 01:58 04/28/24 01:58 Labs: Lab Results 04/28/24 Range/Units 01:58 WBC 10.8 (4.8-10.8) X10*3/uL RBC 4.06 L (4.60-5.80) X10*6/uL Hgb 13.0 L (14.0-18.0) g/dl Hct 38.0 L (42.0-52.0) % MCV 93.6 (80.0-98.0) fL MCH 32.0 (27.0-33.0) pg MCHC 34.2 (31.0-36.0) g/dl RDW 16.1 H (11.0-16.0) % Plt Count 299 (160-400) X10*3/uL MPV 10.0 (9.4-12.4) fL Immature Gran % (Auto) Cancelled Neut % (Auto) Cancelled Lymph % (Auto) Cancelled [place] % (Auto) Cancelled Eos % (Auto) Cancelled Baso % (Auto) Cancelled Lymph # (Auto) Cancelled [place] # (Auto) Cancelled Eos # (Auto) Cancelled Baso # (Auto) Cancelled Abs Immat Gran (auto) Cancelled Absolute Neuts (auto) Cancelled Absolute Nucleated RBC 0.000 (0.0-0.012) X10*3/uL Nucleated RBC % (auto) 0.0 (0.0-0.2) /100WBC Neutrophils % (Manual) 82 H (45-73) % Band Neutrophils % 1 L (3-5) % Lymphocytes % (Manual) 10 L (20-40) % Monocytes % (Manual) 7 (2-11) % Abs Neuts (Manual) 9.0 H (2.0-8.3) X10*3/uL Lymphocytes # (Manual) 1.1 L (1.2-4.9) X10*3/uL Monocytes # (Manual) 0.8 (0.1-1.2) X10*3/uL Platelet Estimate NORMAL (NORMAL) Plt Morphology Comment NORMAL RBC Morphology NORMAL Sodium 138 (135-145) mmol/L Potassium 4.6 (3.3-5.1) mmol/L Chloride 102 (96-108) mmol/L Carbon Dioxide 23 (22-29) mmol/L Anion Gap 18 (12-20) BUN 15 (9-16) mg/dL Creatinine 0.76 (0.5-1.4) mg/dL Estim Creat Clear Calc 104.9 Estimated GFR > 60 Random Glucose 139 H (60-115) mg/dL Calcium 9.5 (8.4-10.2) mg/dL Total Bilirubin 0.8 (0.0-1.0) mg/dL AST 40 H (5-37) U/L ALT 39 (0-40) U/L Alkaline Phosphatase 71 (39-117) U/L B-Natriuretic Peptide < 10 (<100) pg/mL Total Protein 7.4 (6.5-8.0) g/dL Albumin 4.6 (3.5-5.0) g/dL Discharge Plan Discharge Clinical Impression: Dependent edema, Dependent rubor Patient Disposition: Home, Self-Care Additional Instructions: I believe the swelling of both of your legs as a result of spending so much time upright. I have sent a prescription for morphine tablets and for cyclobenzaprine tablets which you may use to help with your pain. I hope that you can get some pain relief so that you can get off your feet and allow your swelling to go down. I think only when you spend less time on your feet will the swelling go down. Compression stockings might help as well. Please continue your efforts to get a new primary care doctor who can help manage your symptoms and a long-term basis. Prescriptions: New morphine 15 mg tablet 15 mg PO Q6H PRN (Reason: pain) Qty: 18 0RF Rx Instructions: Partial Fill upon patient request. cyclobenzaprine 10 mg tablet 10 mg PO TID PRN (Reason: muscle spasm) Qty: 20 0RF No Action cyclobenzaprine 10 mg tablet 10 mg PO TID Qty: 10 0RF naproxen [Naprosyn] 500 mg tablet 500 mg PO BID Qty: 20 0RF dexamethasone 4 mg tablet 4 mg PO BID Qty: 6 0RF cyclobenzaprine 10 mg tablet 10 mg PO TID PRN (Reason: muscle spasm) Qty: 15 0RF ibuprofen 600 mg tablet 600 mg PO Q6H PRN (Reason: pain) Qty: 20 0RF cyclobenzaprine 10 mg tablet 10 mg PO TID PRN (Reason: muscle spasm) 7 Days Qty: 21 0RF Stand Alone Forms: Work/School Release Interventions: ED Discharge Assessment Last Done: 04/28/24 09:03 Discharge Date/Time: 04/28/24 09:04 Print Language: Armenian
[2024-04-28 06:30] VITALS: BP 96/61; PULSE 91; RESP 12; TEMP 36.4; O2SAT 99
[2024-04-28] MEDS: Cyclobenzaprine HCl 10 MG TABLET PO (06:30)
[2024-04-28] MEDS: Morphine Sulfate Immed Release 15 MG TABLET 30 MG PO (06:31)
[2024-04-28 07:23] VITALS: BP 109/70; PULSE 90; RESP 14; O2SAT 100
--- NOTE | 2024-04-28 07:25 | PC.NURSE ---
On coming assesment: Pt is resting comfortably with eye closed in bed. VSS and Pt is currently awaiting U/S arrival for imaging to r/o DVT.
[2024-04-28 08:10] VITALS: BP 110/78; PULSE 82; RESP 14; TEMP 37.2; O2SAT 100
[2024-04-28 09:03] VITALS: BP 110/78; PULSE 82; RESP 14; TEMP 37.2; O2SAT 100
== END 2024-04-28 09:04 | disposition home or self-care (01) ==
PROVIDERS: Emergency Provider Emergency Medicine
DX: R60.0 Localized edema (principal); M79.672 Pain in left foot; M79.671 Pain in right foot; M54.50 Low back pain, unspecified; R06.02 Shortness of breath; F17.210 Nicotine dependence, cigarettes, uncomplicated; Z79.899 Other long term (current) drug therapy
CPT/HCPCS: 36415; 80053; 83880; 85007; 85027; 93970; 99284